=== PATIENT | male | born 2000 | race Caucasian/White ===

== ENCOUNTER 2024-06-11 11:15 | Outpatient (RCR) | payer OTHER, SELFPAY ==
[2024-05-26 09:39] VITALS: BP 116/70; PULSE 84; TEMP 37.3; BMI 50.1
--- NOTE | 2024-05-26 11:01 | PC.ADMIT ---
Patient is a 23 year old single male who was referred by [facility] where patient was admitted from 04/22-05/04/24 d/t increased depression with SI and plan to jump off a bridge. Patient reportedly drove to a bridge in [place] and parked his car and a car pulled up behind him along with police who transferred him to [facility] where he was admitted to the behavioral health unit. Patient stated prior to hospitalization he was looking up bridges on the internet to jump from where he would not be noticed. Patient has been struggling with depression since age 16. No known history of previous SA or hospitalizations. Patient struggling with multiple family member losses in a double murder suicide. I requested records from [facility] behavioral health unit including discharge summary, labs, and H&P for more information. I also called and left a message with the referral source from [facility] Kaci DUKE and requested the above mentioned information. I asked patient if hospitalization helped he stated, never talked about my problems until then I feel it helps to talk about how your feeling . Patient is taking a SARA from work d/t symptoms and stated he needs an extension regarding SARA. Tammi has the paperwork and is aware. 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 Patient is alert and oriented x4. Calm and cooperative. He presented with depressed mood and anxious affect. Regarding SI patient denied at present. Patient stated, no active thoughts mostly thoughts I have are passive not something I'm going to act on . He denied any plans or intention of killing himself. I asked if he starts to get those thoughts again what could he do and he stated, I just started seeing a therapist I can reach out to her . Patient was given a copy of his safety plan if needed and I reviewed this with him. He lives with mother and sister. He reports they are supportive. Medications reconciled with patient and patient's pharmacy. He reports taking medications as prescribed.
--- NOTE | 2024-05-27 15:11 | HO.PHP ---
Client's case has been opened and reviewed in team.
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
--- NOTE | 2024-06-04 22:06 | P.PNPSP_ITS ---
Subjective Subjective Date of Service: 06/04/24 Reason For Visit: MDD,DOMINIQUE Interim History: Patient has tolerated increase in fluoxetine from 20 to 40 mg as well as starting guanfacine ER . Anxiety been okay, not overwhelmed by the anxiety anymore so I guess it's working, hard to tell . He relays continued difficulties assessing and processing emotions. Mood is okay, I feel like it's fairly positive but says he still struggles with functioning, says he is still having trouble with motivation, trouble with getting interested in activities and tasks. Also says it is difficult to organize himselfto get out of his home. Also reports his home is messy, a long standing problem, and also has never been good with or consistent with self care, procrastinates with showering, shaving. Denies any SI/HI/AH/VH. 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 Medication Compliance: Yes Side effects from medications: No Attending Groups: Yes Review of Systems Acute medical concerns: No Mental Status Exam Mental Status Exam Narrative: Alert, oriented, in no acute distress. Calm, cooperative, engaged. No psychomotor agitation or neurovegetative retardation. Eye contact maintained. Mood less depressed, alexithymic, affect constricted. Speech normal. Thought process linear, coherent. Thought content related to stressors, transient hopelessness, denies SI or HI. No paranoia or delusional content elicited. No evidence of psychosis. Insight and judgment - fair but adequate. Diagnostics Vital Signs (24Hr): BMI result Body Mass Index 50.1 Assessment & Plan Assessment & Plan (1) Major depressive disorder without psychotic features: Status: Acute Code(s): F32.9 - Major depressive disorder, single episode, unspecified (2) Post traumatic stress disorder (PTSD): Status: Acute Code(s): F43.10 - Post-traumatic stress disorder, unspecified (3) Attention-deficit hyperactivity disorder, unspecified type: Status: Acute Code(s): F90.9 - Attention-deficit hyperactivity disorder, unspecified type Plan continue fluoxetine 40 mg qam continue guanfacine ER 1 mg qd start Ritalin 5 mg qam - may titrate to 7.5 mg qam continue hydroxyzine 25 mg BID prn anxiety, sleep (underutilized, AE: sedation) conitnue trazodone 150 mg qhs continue vitamin D2 1250 mcg (16239 IU) qweekly (as ppx asso with MS) continue other regular medications: ocrelizumab (Ocrenus) for Multiple Sclerosis Routine lab work ordered EKG, routine for baseline QTc for medication considerations UDS as indicated Continue to monitor Patient educated on: diagnosis and medication risk/benefits Informed Consent: understands Certification I certify that partial hospital treatment is medically necessary due to the symptoms and problems resulting from the patient's mental illness and the failure to treat the patient at the partial hospital level of care would likely result in the patient requiring inpatient psychiatric care which could not be prevented at a less intensive level of care. Total time managing care of this patient today __30__ minutes. Discharge Plan Discharge Attending provider: Gabrielle Banuelos Medications: New guanfacine 1 mg tablet extended release 24 hr 1 mg PO DAILY Qty: 20 0RF methylphenidate HCl 5 mg tablet 5 mg PO BID Qty: 30 0RF Rx Instructions: Partial Fill upon patient request. Continued Ocrevus [id number] ergocalciferol (vitamin D2) [Vitamin D2] 1,250 mcg (50,000 unit) Capsule 1,250 mcg PO QWEEK Changed fluoxetine 20 mg capsule 40 mg PO DAILY 15 Days Qty: 30 0RF trazodone 100 mg tablet 150 mg PO BEDTIME 14 Days Qty: 21 0RF hydroxyzine HCl 25 mg tablet 25 mg PO BID PRN (Reason: Anxiety) Qty: 30 0RF Print Language: Bhutanese Telehealth Telehealth Telehealth Platform: Telephone
--- NOTE | 2024-06-08 12:01 | P.PNPSP_ITS ---
Subjective Subjective Date of Service: 06/08/24 Reason For Visit: MDD,DOMINIQUE Interim History: Started on methylphenidate at 5 mg since last seen Friday. He has slowly titrated the dose, as we discussed, from 5 to 7.5 to 10 mg which he took yesterday and today. Thus far, he notices nothing...no change . Continues with low energy, low motivation, poor concentration. Engages in groups, sometimes zones out or gets bored. Not notably restless. Says he struggles more with mental and physical lethargy and just everything seeming like too much effort . His interest in our discussion waxes and wanes. Reports sleep intact, sometimes too much, often not getting himself to bed, scrolling on phone, or on computer playing videogames or watching vids. He wishes he were more productive, has difficulty with decisions or articulating his thoughts (to himself even). Anxiety has been not much . Some helplessness, transient hopelessness, denies thoughts of harming self. Groups are okay having less social anxiety here at program now that he is getting used to people here. Medication Compliance: Yes Side effects from medications: No Attending Groups: Yes Review of Systems Acute medical concerns: No Mental Status Exam Mental Status Exam Narrative: Alert, oriented, in no acute distress. Calm, cooperative, engaged. No psychomotor agitation or neurovegetative retardation. Eye contact maintained. Mood less depressed, alexithymic, affect constricted. Speech normal. Thought process linear, coherent. Thought content related to stressors, transient hopelessness, denies SI or HI. No paranoia or delusional content elicited. No evidence of psychosis. Insight and judgment - fair but adequate. Diagnostics Vital Signs (24Hr): BMI result Body Mass Index 50.1 Assessment & Plan Assessment & Plan (1) Major depressive disorder without psychotic features: Status: Acute Code(s): F32.9 - Major depressive disorder, single episode, unspecified (2) Post traumatic stress disorder (PTSD): Status: Acute Code(s): F43.10 - Post-traumatic stress disorder, unspecified (3) Attention-deficit hyperactivity disorder, unspecified type: Status: Acute Code(s): F90.9 - Attention-deficit hyperactivity disorder, unspecified type Plan move guanfacine ER 1 mg to qam increase Ritalin to 20 mg qam we discussed starting a long acting [facility] later in week depending on his response to 20 mg IR continue fluoxetine 40 mg qam continue hydroxyzine 25 mg BID prn anxiety, sleep (underutilized, AE: sedation) conitnue trazodone 150 mg qhs continue vitamin D2 1250 mcg (16470 IU) qweekly (as ppx asso with MS) continue other regular medications: ocrelizumab (Ocrenus) for Multiple Sclerosis Routine lab work ordered EKG, routine for baseline QTc for medication considerations UDS as indicated Continue to monitor Patient educated on: diagnosis and medication risk/benefits Informed Consent: understands Reason for contiued partial hosp. stay Substantial Risk for: inability to function and med/psych decompensation Certification I certify that partial hospital treatment is medically necessary due to the symptoms and problems resulting from the patient's mental illness and the failure to treat the patient at the partial hospital level of care would likely result in the patient requiring inpatient psychiatric care which could not be prevented at a less intensive level of care. Total time managing care of this patient today __30__ minutes. Discharge Plan Discharge Attending provider: Gabrielle Banuelos Medications: New guanfacine 1 mg tablet extended release 24 hr 1 mg PO DAILY Qty: 20 0RF methylphenidate HCl 5 mg tablet 5 mg PO BID Qty: 30 0RF Rx Instructions: Partial Fill upon patient request. methylphenidate HCl 20 mg tablet 20 mg PO DAILY Qty: 20 0RF Rx Instructions: Partial Fill upon patient request. methylphenidate HCl [Concerta] 18 mg tablet extended release 24hr 18 mg PO DAILY Qty: 30 0RF Rx Instructions: Partial Fill upon patient request. Continued Ocrevus [id number] ergocalciferol (vitamin D2) [Vitamin D2] 1,250 mcg (50,000 unit) Capsule 1,250 mcg PO QWEEK Changed fluoxetine 20 mg capsule 40 mg PO DAILY 15 Days Qty: 30 0RF trazodone 100 mg tablet 150 mg PO BEDTIME 14 Days Qty: 21 0RF hydroxyzine HCl 25 mg tablet 25 mg PO BID PRN (Reason: Anxiety) Qty: 30 0RF Print Language: Kittitian
--- NOTE | 2024-06-09 22:23 | PM.EVENT ---
Event Note Date of Service: 06/09/24 Event Note: Checked in with [place]. Says he started to notice something this morning taking 20 mg. I felt a little less tired, a little bit more aware . Affects were modest and short-lived, wore off after 2 or 2.5 hours. Denies any adverse effects. When asked about feeling anxious, jittery or heart racing, he said maybe a little heart racing but not much and only noticed this once the medication was wearing off.. Denies issues with anxiety, irritability or insomnia. We will try start 36 mg Concerta tomorrow morning (ordered 18 mg tabs, so will take 2 tabs in AM, and will bring an extra 1-2 tabs of each of his meds (Concerta, Ritalin, guanfacine) in case we need to bump up to 54 mg or repeat 36 mg around lunch depending on how long effects last. Also advised to move guanfacine dose to AM with Concerta Time Spent With Patient Time: Total time managing care of this patient today __20__ minutes.
[2024-06-11 12:18] VITALS: BP 122/68; PULSE 84
--- NOTE | 2024-06-11 22:53 | P.PNPSP_ITS ---
Subjective Subjective Date of Service: 06/11/24 Reason For Visit: MDD,DOMINIQUE Interim History: Patient seen for follow-up, anticipating discharge at the end of program today.? Reports no acute issues or concerns. Medication compliant, medications well- tolerated. Denies any adverse effects.? Mood is stable.? Denies any hopelessness or SI. Denies thoughts of harming self or others at this time. Denies any aggressive ideation or HI. Denies any paranoia or AH or VH. Sleep, appetite, energy stable. Alert, oriented, in no acute distress. Calm, cooperative. Mood stable, affect appropriate. Speech normal. Thought process linear, coherent, more goal- directed. Thought content related to stressors, future-oriented, denies any helplessness, hopelessness or SI.? No aggressive ideation or HI. No paranoia or delusional content elicited. No evidence of psychosis. Insight and judgment fair-good. [facility]charge from [facility] Continue regular medications Refills sent to pharmacy Will defer further medication management to outpatient provider *Safety plan reviewed *Discharge diagnoses, treatment course, discharge plan have been reviewed with patient (including medication regime, medication management, potential side effects) as well as treatment rationale were also revisited *Discharge paperwork signed and given to patient, copy sent for scanning to chart Medication Compliance: Yes Side effects from medications: No Attending Groups: Yes Review of Systems Acute medical concerns: No Diagnostics Vital Signs (24Hr): Vital Signs - 24 hr 06/11/24 12:18 Pulse Rate 84 Blood Pressure 122/68 BMI result Body Mass Index 50.1 Assessment & Plan Certification I certify that partial hospital treatment is medically necessary due to the symptoms and problems resulting from the patient's mental illness and the failure to treat the patient at the partial hospital level of care would likely result in the patient requiring inpatient psychiatric care which could not be prevented at a less intensive level of care. Total time managing care of this patient today ____ minutes. Discharge Plan Discharge Attending provider: Gabrielle Banuelos Medications: New methylphenidate HCl [Concerta] 54 mg tablet extended release 24hr 54 mg PO QAM Qty: 30 0RF Rx Instructions: Partial Fill upon patient request. Continued Ocrevus [id number] ergocalciferol (vitamin D2) [Vitamin D2] 1,250 mcg (50,000 unit) Capsule 1,250 mcg PO QWEEK Changed hydroxyzine HCl 25 mg tablet 25 mg PO BID PRN (Reason: Anxiety) Qty: 30 0RF methylphenidate HCl 20 mg tablet 10 - 20 mg PO DAILY Qty: 20 0RF Rx Instructions: Partial Fill upon patient request. fluoxetine 20 mg capsule 40 mg PO DAILY 15 Days Qty: 30 0RF trazodone 100 mg tablet 150 mg PO BEDTIME PRN (Reason: sleep) 15 Days Qty: 23 0RF guanfacine 1 mg tablet extended release 24 hr 1 mg PO BID Qty: 30 0RF Patient Education: ADHD in Adults (DC), Depression (DC), Post Traumatic Stress Disorder (DC) Print Language: Urdu
--- NOTE | 2024-06-15 23:42 | PM.EVENT ---
Event Note Date of Service: 06/17/24 Event Note: 06/15/24: Patient reached out requesting refills on his fluoxetine and guanfacine. These scripts were efaxed to pharmacy. 06/17/24:Returning call to patient who again called requesting refills on fluxoetine and guanfacine. I let him know that they were sent. He notified me that pharmacy said insurance had requested 90 days so he was able to get his outpatient provider to send them in this morning. He has continued on Concerta 54 mg in AM and 20 mg IR in afternoon. There has been modest gains with 54 mg COncerta, the additional 20 mg makes it a little more helpful these meds seem to work pretty well . He denies any side effects, no agitation,anxiety, insomani or feeling overactivated. I feel nothing like that...they're pretty mild . Says it mostly helps with energy and a little with motivation. He feels there is a lot of room for improvement with attention. Due to body habitus perhaps he coudl afford the dose being titrated but we will defer to his outpatient psychiatrist to continue working on the dosing. For now we will remain at the current doses. He is aware to limit taking the medication to 4-5 days/week or less. To preserve the effectiveness. His next appointment with psych provider is 06/28. He has enough medicaiton to cover him until that appointment. He currently reports being treated for a sinus infection. I suggest he lays off the stimulant while he is sick and stay hydrated and allow himself to rest and can return to taking them once he is feeling better, which he agrees to do. Time Spent With Patient Time: Total time managing care of this patient today __20__ minutes.
== END 2024-06-11 23:59 | disposition home or self-care (01) ==
LOC: HO.PHPA 11:15
PROVIDERS: Visit Provider Psychiatry & Neurology Psychiatry
DX: F32.9 Major depressive disorder, single episode, unspecified (principal); F43.10 Post-traumatic stress disorder, unspecified; F90.9 Attention-deficit hyperactivity disorder, unspecified type; Z79.899 Other long term (current) drug therapy; Z86.59 Personal history of other mental and behavioral disorders
CPT/HCPCS: 90791; 90853